=== PATIENT | male | born 1980 | race Caucasian/White ===

== ENCOUNTER 2019-08-20 13:55 | Emergency (ER) | payer OTHER ==
[~2019-08-20] VITALS: Ht 188 cm; Wt 113.6 kg
[2019-08-20 14:01] VITALS: BP 139/86
--- NOTE | 2019-08-20 14:19 | NUR ---
FAISAL Parson at bedside.
[2019-08-20] MEDS ORDERED: HYDR-4353 PO (15:34)
== END 2019-08-20 15:51 | disposition home or self-care (01) ==
LOC: ER 13:56
DX: S13.4XXA Sprain of ligaments of cervical spine, initial encounter (principal); S00.31XA Abrasion of nose, initial encounter; S00.81XA Abrasion of other part of head, initial encounter; S80.212A Abrasion, left knee, initial encounter; S80.211A Abrasion, right knee, initial encounter; S50.312A Abrasion of left elbow, initial encounter; Z72.89 Other problems related to lifestyle; V98.8XXA Other specified transport accidents, initial encounter; Y93.89 Activity, other specified; Y92.410 Unspecified street and highway as the place of occurrence of the external cause; Y99.8 Other external cause status
CPT/HCPCS: 71045; 71100; 72040; 99284